=== PATIENT | female | born 1990 ===

== ENCOUNTER 2016-10-11 12:43 | Observation (INO) ==
--- NOTE | 2016-10-11 13:18 | Emergency Department Note ---
Jose Juan Mcguire Meredith, am scribing for, and in the presence of, Shaw Mahmood MD 13: 14. Ela Mcguire James D, MD, personally performed the services described in this documentation, ascribed by Etta Manzano in my presence, and it is both accurate and complete 317 . Arrival - Arrival Chief Complaint: Weakness Stated Complaint: TRANSFER [facility] ANEMIA ED Nursing Triage Note: PT TRANSFERRED FROM [facility] FOR FURTHER EVALUATION OF ANEMIA. PT WENT TO [facility] THIS AM AFTER FALLING ON TAILBONE D/T WEAKNESS. H & H FOUND TO BE 6 & 19. PT HAS WOUNDS TO BLE WITH FOUL ODOR- DEBRIDEMENT BY DR PRESCOTT. PT C/O PAIN TO TAIL BONE. Mode of Arrival: Stretcher Limitations: No Limitations Source: Patient, Old Records Reviewed, RN Notes Reviewed Time Seen by Provider: 10/11/16 13:06 - History of Present Illness HPI Narrative: Pt is a 26 y/o female transferred to the ED by EMS from [facility] for further evaluation of anemia. Her H&H was 6 and 19 at [facility]. Pt has been generally weak lately and fell on her tailbone this morning. She confirms pain to he tailbone and some lightheadedness but denies any abnormal menses, hematochezia, or melena. Pt has a history of HTN, thyroid disorder, IDDM, NIDDM, renal failure, or anemia. She attends dialysis on //Sun. Pt has ulcerations to bilateral lower extremities which have had debridement per Dr. Prescott. Onset (ago): unknown Allergies/Adverse Reactions: Allergies Allergy/AdvReac Type Severity Reaction Status Date / Time No Known Allergies Allergy Verified 10/11/16 13:01 Home Medications: Home Medications Medication Instructions Recorded Confirmed Type Lisinopril 20 mg PO DAILY 04/23/15 10/11/16 History Levothyroxine Tab [Synthroid Tab] 175 mcg PO DAILY@0700 05/29/16 10/11/16 History Nifedipine [Nifedipine ER] 90 mg PO DAILY 05/29/16 10/11/16 History Calcium (Carbonate) [Caltrate 600] 600 mg PO QID W/MEALS & HS 08/29/16 10/11/16 History Cholecalciferol (Vitamin D3) 50,000 unit PO Q28D 08/29/16 10/11/16 History [Vitamin D3] Carvedilol [Coreg] 6.25 mg PO BID W/MEALS #120 tablet 09/14/16 10/11/16 Rx Cyclobenzaprine [Flexeril] 5 mg PO TID #90 tablet 09/14/16 10/11/16 Rx Clindamycin HCl [Clindamycin Cap] 300 mg PO TID 10/11/16 10/11/16 History Hydrocodone/Acetaminophen 1 - 2 tablet PO Q4H PRN 10/11/16 10/11/16 History [Hydrocodon-Acetaminoph 7.5-325] Review of System - Review of System 12 point system: reviewed and no additional remarkable complaints except as stated - Review of System Constitutional: Present: as per HPI, weakness, other (low H & H ; lightheadedness) Musculoskeletal: Present: as per HPI, other (tailbone pain s/o fall ) Skin: Present: as per HPI, other (ulcers to bilateral lower extremities) Medical,Surgical,& Family Hx - Medical History Cardio: History of: Hypertension Endocrine: History of: Diabetes Mellitus (IDDM), Diabetes Mellitus (NIDDM), Thyroid Disorder Renal: History of: Dialysis (T,T,S), Renal Failure, Renal Problems Hematology: History of: Anemia Other: History of: MRSA, Miscellaneous Medical Problems (Right chest tessio) - Surgical History Reproductive Surgeries: Surgical HX of;: Section (times 2) - Family History Family History: Reports;: Family Diabetes (mother, father, sister), Family Heart Disease (mother, father), Family Hypertension (mother, father) Denies;: Family Anesthesia Reaction, Family Cancer, Family Psychiatric Problems, Family Stroke - Social History Smoking Status: Never smoker Frequency of Alcohol Use: None Type of Drug Use: None Exam Physical Examination: GENERAL: This is a well-nourished, well-developed female in no apparent distress. VITAL SIGNS: Temperature: 99.1, Pulse; 102, Respirations: 16, Blood pressure: 153/80, O2 Saturation: 97 HEENT: Head is normocephalic and atraumatic. Pupils are equally round and reactive to light. Extraocular movement are intact. Oropharynx is benign with moist mucous membranes. NECK: Neck is soft and supple without tenderness. There are no masses. There is no lymphadenopathy. LUNGS: Lungs are clear to auscultation bilaterally. Chest rises symmetrically. There is no chest wall tenderness. CV: Heart is regular rate and rhythm without murmurs, rubs, or gallops. ABDOMEN: Abdomen is soft, non-tender to palpation. There are no abnormal masses palpated. There is no organomegaly. Bowel sounds are present and active. SKIN: Skin is warm and dry. No rash. Pallor noted. EXTREMITIES: Patient has full range of motion without tenderness. There is no pedal edema. NEUROLOGIC: Awake, alert, and oriented x4. Cranial nerves II through XII are grossly intact. There are no motorsensory deficits. PSYCHIATRIC: Normal affect. Normal mood. Vital Signs: Vital Signs Temperature 99.1 F 10/11/16 12:43 Pulse Rate 96 H 10/11/16 15:00 Respiratory Rate 16 10/11/16 15:00 Blood Pressure 171/90 10/11/16 15:00 O2 Sat by Pulse Oximetry 96 10/11/16 15:00 Course - Consultations Consultation #1: Discussed with Dr. Johns. Patient will be admitted to his service as an outpatient for transfusion of 2 units of packed red blood cells. Initial orders written for him. Patient will be discharged home later today by him. Time: 13:34 Results - Labs CBC & BMP: 10/11/16 13:50 10/11/16 13:50 Disposition Clinical Impression: Anemia, End stage renal disease Case discussed with: patient Disposition: Still a Patient Condition: Stable
--- NOTE | 2016-10-11 13:39 | XRay Report ---
XR chest 2V Indication: Anemia, end-stage renal disease Comparison: 29 August 2016 Findings: The heart and mediastinum are stable in size and configuration. Right internal jugular catheters unchanged in position. The pulmonary vascularity is slightly increased with bilateral increased interstitial lung density. No other lung infiltrates, effusions, pneumothorax or other abnormality is demonstrated. Impression: Findings suggest mild cardiac decompensation. PROCEDURE INTERPRETED AT [facility] DEPARTMENT OF RADIOLOGY Final Report Signed by: Dr. Gume Jaime
[2016-10-11 14:01] LABS: Basophils % 0.2 % (0.0-0.8); Eosinophils # 0.3 10*3/uL (0.0-0.87); Eosinophils % 2.4 % (0.00-10.9); Immature Granulocytes % 0.5 %; Immature Granulocytes Absolute 0.07 #; Lymphocytes # 3.8 10*3/uL (1.4-4.0); Lymphocytes % 29.1 % (21.3-54.2); Mean Corpuscular HGB Conc 30.1 GM/DL (32-36); Mean Corpuscular Hemoglobin 27 PG (27-34); Mean Corpuscular Volume 89.2 FL (87-102); Mean Platelet Volume 9.6 FL (9.6-12.0); Monocytes # 1.2 10*3/uL (0.11-0.8); Monocytes % 9.6 % (1.7-12.7); Neutrophils # 7.5 10*3/uL (1.4-7.4); Neutrophils % 58.2 % (38.7-73.9); Platelet Count 575 T/CUMM (130-400); Red Blood Count 1.94 MC/CUMM (3.8-5.5); Red Cell Distribution Width 14.1 % (9.3-17.3); White Blood Count 12.9 T/CUMM (4-12)
[2016-10-11 14:03] LABS: Hematocrit 17.3 VOL% (35.7-47.0); Hemoglobin 5.2 GM/DL (12.0-16.0)
[2016-10-11 14:29] LABS: % Iron Saturation 17.5 % (18-50); Alanine Aminotransferase < 6 U/L (13-56); Albumin 1.4 G/DL (3.4-5.0); Alkaline Phosphatase 364 U/L (45-117); Aspartate Amino Transferase 12 U/L (0-37); Blood Urea Nitrogen 21 MG/DL (7-18); Calcium 7.4 MG/DL (8.5-10.1); Glucose 72 MG/DL (74-106); Iron 22 UG/DL (50-170); Iron Binding Capacity 126 UG/DL (250-450); Osmolality,Calculated 284.1 MOS/KG (273-304); Potassium 4.1 MMOL/L (3.5-5.1); Sodium 142 MMOL/L (136-145); Total Protein 6.5 G/DL (6.4-8.3)
--- NOTE | 2016-10-11 16:12 | Nephrology History & Physical ---
History of Present Illness Chief complaint: ESRD, anemia History of present illness: Ms. Finn is a 26 year old female with ESRD secondary to diabetes. She has one is on her lower extremities which have been debrided. She is being followed at the wound care center. She has some difficulty walking because of these. She fell this morning and was evaluated at the [facility]. Lab work was drawn there which showed significant anemia. She's had no melena abdominal pain or nausea. Home Medications Medication Instructions Recorded Confirmed Type Lisinopril 20 mg PO DAILY 04/23/15 10/11/16 History Levothyroxine Tab [Synthroid Tab] 175 mcg PO DAILY@0700 05/29/16 10/11/16 History Nifedipine [Nifedipine ER] 90 mg PO DAILY 05/29/16 10/11/16 History Calcium (Carbonate) [Caltrate 600] 600 mg PO QID W/MEALS & HS 08/29/16 10/11/16 History Cholecalciferol (Vitamin D3) 50,000 unit PO Q28D 08/29/16 10/11/16 History [Vitamin D3] Carvedilol [Coreg] 6.25 mg PO BID W/MEALS #120 tablet 09/14/16 10/11/16 Rx Cyclobenzaprine [Flexeril] 5 mg PO TID #90 tablet 09/14/16 10/11/16 Rx Clindamycin HCl [Clindamycin Cap] 300 mg PO TID 10/11/16 10/11/16 History Hydrocodone/Acetaminophen 1 - 2 tablet PO Q4H PRN 10/11/16 10/11/16 History [Hydrocodon-Acetaminoph 7.5-325] Allergies Allergy/AdvReac Type Severity Reaction Status Date / Time No Known Allergies Allergy Verified 10/11/16 13:01 Review of Systems Constitutional: weakness, no chills, no fever(s) Cardiovascular: no chest pain at rest, no chest pain with activity, no dyspnea Respiratory: no cough, no dyspnea, no hemoptysis Genitourinary: difficulty urinating, no dysuria, no flank pain, no hematuria Musculoskeletal: as per HPI Neurological: no confusion, no disequilibrium Hematologic/Lymphatic: as per HPI Medical,Surgical,& Family Hx - Medical History Cardio: History of: Hypertension Endocrine: History of: Diabetes Mellitus (IDDM), Diabetes Mellitus (NIDDM), Thyroid Disorder Renal: History of: Dialysis (T,T,S), Renal Failure, Renal Problems Hematology: History of: Anemia Other: History of: MRSA, Miscellaneous Medical Problems (Right chest tessio) - Surgical History Reproductive Surgeries: Surgical HX of;: Section (times 2) - Family History Family History: Reports;: Family Diabetes (mother, father, sister), Family Heart Disease (mother, father), Family Hypertension (mother, father) Denies;: Family Anesthesia Reaction, Family Cancer, Family Psychiatric Problems, Family Stroke - Social History Smoking Status: Never smoker Frequency of Alcohol Use: None Type of Drug Use: None Exam - Nephrology - Vital Signs Vital signs: Vital Signs Pulse Resp BP Pulse Ox 10/11/16 15:00 96 H 16 171/90 96 10/11/16 14:30 97 H 16 179/100 95 10/11/16 14:00 100 H 16 172/88 95 10/11/16 13:56 16 Exam: Gen.: Alert and oriented x3. ENT: Pupils equal round reactive to light. EOMs intact. Mucous membranes moist. Neck: Supple. No JVD or bruit. Cardiovascular: Regular rate and rhythm. No murmur rub or gallop Lungs: Clear Abdomen: Soft. Nontender. Positive bowel sounds. No organomegaly Extremities: Legs below the knees are dressed Results - Labs CBC & BMP: 10/11/16 13:50 10/11/16 13:50 Assessment and Plan (1) Anemia Status: Acute Assessment and plan: 26-year-old woman admitted to outpatient with: * Anemia. Hemoglobin was 6.6 one week ago. No evidence of bleeding. She will be transfused 2 units PRBC * ESRD. Dialysis tomorrow * Diabetes mellitus * Diabetic leg wounds. Followed at wound care. Current Visit: Yes (2) End stage renal disease Status: Acute Current Visit: Yes (3) Diabetes mellitus Status: Acute Current Visit: No (4) Essential hypertension Status: Acute Current Visit: No
[2016-10-11 16:32] LABS: Folate 5.2 NG/ML (5.4-24.0)
[2016-10-11] MEDS ORDERED: SODIUM CHLORIDE 0.9% 250 ML IV PRN (17:00)
[2016-10-11] MEDS ORDERED: GLUCAGON 1 MG VIAL IM PRN (17:00)
[2016-10-11] MEDS ORDERED: DEXTROSE 50% 25 GM/50 ML VIAL IV PRN (17:00)
[2016-10-11] MEDS: INSULIN LISPRO 100 UNIT/ML SUBCUT SCH ×2 (17:08→22:22)
[2016-10-12] MEDS ORDERED: ONDANSETRON 4 MG/2 ML VIAL ONE (00:51)
[2016-10-12] MEDS: ONDANSETRON 4 MG/2 ML VIAL IV PRN ×2 (00:59→15:08)
[2016-10-12] MEDS: SODIUM CHLORIDE 0.9% 1,000 ML IV SCH ×2 (06:59→16:09)
[2016-10-12] MEDS: INSULIN LISPRO 100 UNIT/ML SUBCUT SCH ×4 (08:26→21:58)
[2016-10-12] MEDS ORDERED: CYCLOBENZAPRINE 10 MG TABLET PO PRN (09:22)
[2016-10-12] MEDS ORDERED: ERGOCALCIFEROL 50,000 UNIT CAPSULE PO SCH (09:30)
[2016-10-12 09:32] LABS: Basophils # 0.1 10*3/uL (0.0-0.2); Basophils % 0.9 % (0.0-0.8); Eosinophils # 0.3 10*3/uL (0.0-0.87); Eosinophils % 3.2 % (0.00-10.9); Hemoglobin 7.7 GM/DL (12.0-16.0); Immature Granulocytes % 0.7 %; Immature Granulocytes Absolute 0.07 #; Lymphocytes # 2.2 10*3/uL (1.4-4.0); Lymphocytes % 21.7 % (21.3-54.2); Mean Corpuscular HGB Conc 32.1 GM/DL (32-36); Mean Corpuscular Hemoglobin 28 PG (27-34); Mean Corpuscular Volume 86.6 FL (87-102); Monocytes # 0.6 10*3/uL (0.11-0.8); Monocytes % 5.7 % (1.7-12.7); Neutrophils # 6.7 10*3/uL (1.4-7.4); Neutrophils % 67.8 % (38.7-73.9); Platelet Count 576 T/CUMM (130-400); Red Blood Count 2.77 MC/CUMM (3.8-5.5); Red Cell Distribution Width 14.1 % (9.3-17.3); White Blood Count 9.9 T/CUMM (4-12)
[2016-10-12] MEDS: CLINDAMYCIN 300 MG CAPSULE PO SCH ×3 (09:45→22:04)
--- NOTE | 2016-10-12 11:16 | General Surgery Consult Note ---
Assessment and Plan - Time spent with patient Time spent with patient: Less than 30 minutes (1) Open wound of both lower extremities with complication Status: Acute Assessment and plan: 26NAF w dm, htn, esrd on hd admitted by dr gwen lyles severe anemia and weakness. she has been transfused 2 units and is getting 2 more now in HD. pt has BLE open wounds that have been followed closely by dr alex. her wounds have an odor and thickened drainage w some necrotic areas. most likely will need further debridement. will discuss w dr maurice who is covering for dr alex. she will be in HD most of today so may need to be done tomorrow. will write local wound care orders for now. Current Visit: Yes (2) Eschar of lower leg Status: Acute Current Visit: No History of Present Illness Chief complaint: weakness History of present illness: 26NAF w history of DM, HTN, ESRD on HD admitted by dr gwen carter pt fell at home. pt went to [facility] p she felt weak and fell. she was found to be profoundly anemic and transferred here for further care. pt rec'd 2 units last night and is receiving 2 more units today in HD. dr alex has seen pt for BLE wounds previously. he is out and dr maurice is covering to evaluate these leg wounds. pt was initially seen and debrided by dr alex on 09/13/16 for bilateral LE eschar that had started as cellulitis. pt denies any injuries prior. she followed up in clinic and was debrided again on 10/02/16 in the surgery center. she followed up in clinic on 10/10/16 where her wounds were fairly clean. [facility] was incorrectly dressing wounds with cast padding only. new wound orders were written by his office and she was to follow up w dr beatriz houston in wound center on 10/16. upon exam, she was seen in HD wo complaints. she does have intermittent pain in her BLE. her wounds have a foul odor w several areas of necrosis. it has copious amounts of thick drainage and few areas of healthy tissue. her wbc are ok and she is afebrile Home Medications Medication Instructions Recorded Confirmed Type Lisinopril 20 mg PO DAILY 04/23/15 10/11/16 History Levothyroxine Tab [Synthroid Tab] 175 mcg PO DAILY@0700 05/29/16 10/11/16 History Nifedipine [Nifedipine ER] 90 mg PO DAILY 05/29/16 10/11/16 History Calcium (Carbonate) [Caltrate 600] 600 mg PO QID W/MEALS & HS 08/29/16 10/11/16 History Cholecalciferol (Vitamin D3) 50,000 unit PO Q28D 08/29/16 10/11/16 History [Vitamin D3] Carvedilol [Coreg] 6.25 mg PO BID W/MEALS #120 tablet 09/14/16 10/11/16 Rx Cyclobenzaprine [Flexeril] 5 mg PO TID #90 tablet 09/14/16 10/11/16 Rx Clindamycin HCl [Clindamycin Cap] 300 mg PO TID 10/11/16 10/11/16 History Hydrocodone/Acetaminophen 1 - 2 tablet PO Q4H PRN 10/11/16 10/11/16 History [Hydrocodon-Acetaminoph 7.5-325] Allergies Allergy/AdvReac Type Severity Reaction Status Date / Time No Known Allergies Allergy Verified 10/11/16 18:15 Medical,Surgical,& Family Hx - Medical History Cardio: History of: Hypertension Endocrine: History of: Diabetes Mellitus (IDDM), Diabetes Mellitus (NIDDM), Thyroid Disorder Renal: History of: Dialysis (T,T,S), Renal Failure, Renal Problems Hematology: History of: Anemia Other: History of: MRSA, Miscellaneous Medical Problems (Right chest tessio) - Surgical History Reproductive Surgeries: Surgical HX of;: Section (times 2) - Family History Family History: Reports;: Family Diabetes (mother, father, sister), Family Heart Disease (mother, father), Family Hypertension (mother, father) Denies;: Family Anesthesia Reaction, Family Cancer, Family Psychiatric Problems, Family Stroke - Social History Smoking Status: Never smoker Frequency of Alcohol Use: None Type of Drug Use: None - Constitutional Constitutional: Present: as per HPI Exam - Constitutional Vitals: Period Temp Pulse Resp BP Sys/Flores Pulse Ox Last 24 Hr 97.9 F-99.3 F 80-100 16-20 159-180/78-100 95-100 26NAF, NAD, alert and oriented seen on HD chest clear cv rrr abd soft, nt ext bilateral large wounds w copious thick drainage, and necrotic areas. good distal pulses. Results - Labs CBC & BMP: 10/12/16 08:38 10/11/16 13:50 Lab Results: I have reviewed the past 24 hour labs
--- NOTE | 2016-10-12 12:17 | Nephrology Progress Note ---
Nephrology - PN: Subj Interval history: She is seen during dialysis. Shortness of breath has improved. She was transfused last night. She will receive additional blood during dialysis today. Exam (PN)-Nephrology - Vital Signs Vital signs: Period Temp Pulse Resp BP Sys/Flores Pulse Ox Last 24 Hr 97.9 F-99.3 F 80-100 16-20 159-180/78-100 95-100 Exam: ENT: Normal Cardiovascular: Regular rate and rhythm. No murmur rub or gallop Lungs: Clear Extremities: Wrapped below the knees - Lab 10/12/16 08:38 10/11/16 13:50 Most recent lab results Calcium 7.4 MG/DL (8.5-10.1) L 10/11/16 13:50 Assessment and Plan (1) Anemia Status: Acute Assessment and plan: 26-year-old woman admitted to outpatient with: * Anemia. Improved after transfusion. She will receive 2 additional units during dialysis today * ESRD. Stable during dialysis * Diabetes mellitus * Diabetic leg wounds. Evaluated by surgery. Current Visit: Yes (2) End stage renal disease Status: Acute Current Visit: Yes (3) Diabetes mellitus Status: Acute Current Visit: No (4) Essential hypertension Status: Acute Current Visit: No
[2016-10-12] MEDS: CHLORHEXIDINE 4% SOLN 118 ML BOTTLE TOP SCH (14:48)
[2016-10-12] MEDS: SODIUM HYPOCHLORITE 0.25% IRRIG 473 ML BOTTLE TOP SCH (14:48)
[2016-10-12] MEDS: CARVEDILOL 6.25 MG TABLET PO SCH ×2 (14:49→20:33)
[2016-10-12] MEDS: LISINOPRIL 20 MG TABLET PO SCH (14:49)
[2016-10-12] MEDS: CALCIUM (CARBONATE) 600 MG TABLET PO SCH ×3 (14:52→20:33)
[2016-10-13] MEDS: CLINDAMYCIN 300 MG CAPSULE PO SCH ×2 (06:12→14:04)
[2016-10-13] MEDS ORDERED: LEVOTHYROXINE 175 MCG TABLET PO SCH (07:00)
[2016-10-13] MEDS: INSULIN LISPRO 100 UNIT/ML SUBCUT SCH ×2 (07:30→11:30)
--- NOTE | 2016-10-13 08:27 | General Surgery Progress Note ---
Assessment and Plan (1) Open wound of both lower extremities with complication Status: Acute Assessment and plan: Continue current topical wound care. Wound care consult for assistance. Dr. Tolbert will be back on Sunday if the patient is still here. Current Visit: Yes Subjective Patient reports: Present: no new complaints, afebrile Exam - Constitutional Vitals: Period Temp Pulse Resp BP Sys/Flores Pulse Ox Last 24 Hr 97.6 F-98.5 F 75-95 16-20 111-195/52-107 97-100 General appearance: normal weight, no acute distress - Head Head exam: Present: normal inspection, normocephalic - Eye Eye exam: Present: EOMI Pupils: Present: BULMARO - ENT ENT exam: Present: normal exam Mouth exam: Present: normal external inspection, normal voice - Neck Neck exam: Present: normal inspection, trachea midline - Respiratory Respiratory exam: Present: clear to auscultation bilaterally. Absent: accessory muscle use, chest wall tenderness - Cardiovascular Cardiovascular exam: Present: RRR. Absent: systolic murmur, tachycardia - GI/Abdominal GI/Abdominal exam: Present: normal bowel sounds, soft. Absent: tenderness, rebound - Extremities Exam Extremities exam: Present: other (no change bilateral lower extremity wounds. Minimal breaking up eschar. Otherwise clean with no infection or foul odor.) - Back Exam Back exam: Present: normal inspection - Neurological Exam Neurological exam: Present: alert, oriented X3 Speech: Present: normal - Skin Skin exam: Present: normal color, warm Results - Labs CBC & BMP: 10/12/16 08:38 10/11/16 13:50
[2016-10-13] MEDS: LISINOPRIL 20 MG TABLET PO SCH (10:40)
[2016-10-13] MEDS: CALCIUM (CARBONATE) 600 MG TABLET PO SCH ×2 (10:41→12:51)
[2016-10-13] MEDS: CARVEDILOL 6.25 MG TABLET PO SCH (10:41)
[2016-10-13] MEDS ORDERED: COLLAGENASE OINT 30 GM TUBE TOP SCH (11:00)
--- NOTE | 2016-10-13 11:50 | Discharge Summary ---
Hospital Course - Hospital Course Hospital Course: Ms. Finn was admitted for symptomatic anemia. She had LOUIS and weakness prior to admission. She transfused on the day of admission. She underwent dialysis with additional transfusion the following day. She was seen in consultation by Dr. Harrison for chronic lower leg wounds. Local care was recommended. No debridement was required. She is to follow-up with Dr. Liseth Arias in the wound care center next week. She is to continue her current TTS dialysis schedule in [place] Diagnosis - Discharge Diagnosis (1) Anemia Status: Chronic (2) End stage renal disease Status: Chronic (3) Diabetes mellitus Status: Chronic (4) Essential hypertension Status: Chronic Specialty Discharge - Follow Up or Referrals Follow up with: Adarsh Tolbert MD [Physician] - 10/19/16 2:45 pm Hossein Childers Jr., MD [Physician] - 10/15/16 8:00 am (This is at the [facility] here to see Dr Childers about your wounds.) Discharge Plan - Discharge Data Disposition: Disch To Home/Self Care Condition at Discharge: Stable Discharge Diet: advance to your usual diet Activity: resume usual activities as tolerated Hygiene: no restrictions Weight Bearing at Discharge: full weight bearing - Discharge Medications New Lisinopril [Prinivil] 20 mg PO DAILY tablet Calcium (Carbonate) [Caltrate 600] 600 mg PO QID W/MEALS & HS tablet Carvedilol [Coreg] 6.25 mg PO BID tablet Ergocalciferol [Drisdol] 50,000 unit PO Q30D capsule Levothyroxine Tab [Synthroid Tab] 175 mcg PO DAILY@0700 tablet NIFEdipine XL TAB [Procardia Xl] 90 mg PO DAILY tablet HYDROcodone/ACETAMIN 10-325 [[place] 10-325] 1 tablet PO Q4H PRN #30 tablet PRN Reason: Pain Moderate (4-7) Continue Lisinopril 20 mg PO DAILY Nifedipine [Nifedipine ER] 90 mg PO DAILY Levothyroxine Tab [Synthroid Tab] 175 mcg PO DAILY@0700 Cholecalciferol (Vitamin D3) [Vitamin D3] 50,000 unit PO Q28D Carvedilol [Coreg] 6.25 mg PO BID W/MEALS #120 tablet Chlorhexidine 4% Soln [Hibiclens] 1 applic TOP DAILY #1 topical solution Collagenase Oint [Santyl Oint] 1 applic TOP DAILY #1 ointment Sodium Hypochlorite 0.25% Irr [Dakins 1/2 Strength 0.25% Soln] 1 applic TOP DAILY #1 irrigation Discontinued Clindamycin HCl [Clindamycin Cap] 300 mg PO TID Cyclobenzaprine [Flexeril] 5 mg PO TID #90 tablet Hydrocodone/Acetaminophen [Hydrocodon-Acetaminoph 7.5-325] 1 - 2 tablet PO Q4H PRN PRN Reason: Pain No Action Calcium (Carbonate) [Caltrate 600] 600 mg PO QID W/MEALS & HS - Follow Up or Referral Follow Up: Adarsh Tolbert MD [Physician] - 10/19/16 2:45 pm Hossein Childers Jr., MD [Physician] - 10/15/16 8:00 am (This is at the [facility] here to see Dr Childers about your wounds.) - Forms/Instructions Exam - Constitutional Vitals: Period Temp Pulse Resp BP Sys/Flores Pulse Ox Last 24 Hr 97.6 F-98.5 F 75-95 16-20 111-195/52-107 97-100 Exam: ENT: Normal Cardiovascular: Regular rate and rhythm. No murmur rub or gallop Lungs: Clear Extremities: 1+ edema. Legs wrapped below the knee Discharge Results Procedures and tests throughout hospitalization: Pending Orders 10/12/16 08:31 Red Blood Cells Leuko Red Stat Labs on day of discharge: Labs from last 24 hours 10/12/16 10/12/16 10/12/16 20:36 19:12 18:04 POC Glucose 105 108 H 78 10/12/16 10/12/16 15:39 12:11 POC Glucose 71 L 81 DS: Provider Date of admission: 10/11/16 13:34 Primary care physician: Aura Moura MD Attending physician on admission: Anthony Johns MD Consults: 10/11/16 17:03 Consult to Physician [CONS] Routine Comment: known to you recent debridement of BLE Consulting Provider: Jimmy Harrison Person Notified: Maynor Date Notified: 10/12/16 Time Notified: 09:19 10/11/16 17:04 Consult to Pharmacy [CONS] Routine Reason for Pharmacy Consult: Adjust Meds Renal Funct 10/13/16 10:50 Consult to Wound Care - [place] [CONS] Routine Reason for Wound Care: Other Consult Comment: initial wound orders Discharging clinician: Anthony Johns MD
[2016-10-13] MEDS: CHLORHEXIDINE 4% SOLN 118 ML BOTTLE TOP SCH (12:00)
[2016-10-13] MEDS: SODIUM HYPOCHLORITE 0.25% IRRIG 473 ML BOTTLE TOP SCH (12:00)
[2016-10-14 07:16] VITALS: BP 111/66
== END 2016-10-13 15:45 | disposition home or self-care (01) ==
LOC: EDUNIT# → EDBD → N.ED 12:43 → N.EDINP 12:43 → N.5E 16:58
PROVIDERS: ADMIT Internal Medicine Nephrology; ATTEND Internal Medicine Nephrology

== ENCOUNTER 2018-10-24 19:25 | Observation (INO) ==
[2018-10-24] MEDS ORDERED: GLUCAGON 1 MG VIAL IM PRN (22:41)
[2018-10-24] MEDS ORDERED: diphenhydrAMINE CAP 25 MG CAPSULE PO PRN (22:41)
[2018-10-24] MEDS ORDERED: MORPHINE 4 MG/1 ML VIAL IV PRN (22:41)
[2018-10-24] MEDS ORDERED: NICOTINE 21 MG/24 HR PATCH TRANSDERM PRN (22:41)
[2018-10-24] MEDS ORDERED: hydrALAZINE 20 MG/1 ML VIAL IV PRN (22:41)
[2018-10-24] MEDS ORDERED: ONDANSETRON 4 MG/2 ML VIAL IV PRN (22:41)
[2018-10-24] MEDS ORDERED: ZALEPLON 5 MG CAPSULE PO PRN (22:41)
[2018-10-24] MEDS ORDERED: DEXTROSE 50% 25 GM/50 ML VIAL IV PRN (22:41)
[2018-10-24] MEDS ORDERED: TETANUS IMMUNE GLOBULIN 250 UNIT SYRINGE IM ONE (23:30)
[2018-10-24 23:36] LABS: Basophils # 0.1 10*3/uL (0.0-0.2); Basophils % 0.7 % (0.0-0.8); Eosinophils # 0.5 10*3/uL (0.0-0.87); Eosinophils % 3.9 % (0.00-10.9); Hematocrit 29.1 VOL% (35.7-47.0); Hemoglobin 9.6 GM/DL (12.0-16.0); Immature Granulocytes % 0.3 %; Immature Granulocytes Absolute 0.04 #; Lymphocytes % 24.7 % (21.3-54.2); Mean Corpuscular Hemoglobin 31 PG (27-34); Mean Platelet Volume 10.4 FL (9.6-12.0); Monocytes # 0.9 10*3/uL (0.11-0.8); Monocytes % 7.1 % (1.7-12.7); Neutrophils # 7.7 10*3/uL (1.4-7.4); Neutrophils % 63.3 % (38.7-73.9); Platelet Count 255 T/CUMM (130-400); Red Blood Count 3.13 MC/CUMM (3.8-5.5); Red Cell Distribution Width 13.8 % (9.3-17.3); White Blood Count 12.1 T/CUMM (4-12)
[2018-10-24 23:55] LABS: Albumin 3.1 G/DL (3.4-5.0); Bilirubin,Total 0.5 MG/DL (0.2-1.0); Calcium 7.7 MG/DL (8.5-10.1); Osmolality,Calculated 285.1 MOS/KG (273-304); Potassium 4.2 MMOL/L (3.5-5.1); Total Protein 7.3 G/DL (6.4-8.3)
[2018-10-25] MEDS: CARVEDILOL 12.5 MG TABLET PO SCH ×3 (00:04→21:26)
[2018-10-25] MEDS: CLINDAMYCIN INJ 600 MG in PREMIX 1 EACH IV SCH ×3 (04:50→21:25)
[2018-10-25] MEDS: ACETAMINOPHEN 325 MG TABLET PO PRN ×3 (05:28→21:25)
[2018-10-25] MEDS ORDERED: PIPERACILLIN/TAZOBACTAM 3,375 MG in SODIUM CHLORIDE 0.9% 100 ML IV SCH (08:00)
[2018-10-25] MEDS: LISINOPRIL 20 MG TABLET PO SCH (08:08)
[2018-10-25] MEDS: PANTOPRAZOLE 40 MG TABLET PO SCH (08:09)
[2018-10-25] MEDS: INSULIN REGULAR 100 UNIT/ML SUBCUT SCH ×4 (10:33→22:31)
[2018-10-25] MEDS: HEPARIN 5,000 UNIT/1 ML VIAL SUBCUT SCH ×2 (17:15→21:26)
[2018-10-25] MEDS ORDERED: INSULIN GLARGINE 100 UNIT/ML SUBCUT SCH (21:00)
[2018-10-25] MEDS: PIPERACILLIN/TAZOBACTAM 3,375 MG in SODIUM CHLORIDE 0.9% 100 ML IV SCH (22:32)
[2018-10-26] MEDS: CLINDAMYCIN INJ 600 MG in PREMIX 1 EACH IV SCH (05:30)
[2018-10-26] MEDS: HEPARIN 5,000 UNIT/1 ML VIAL SUBCUT SCH (06:02)
[2018-10-26] MEDS: INSULIN REGULAR 100 UNIT/ML SUBCUT SCH (08:05)
[2018-10-26] MEDS: PIPERACILLIN/TAZOBACTAM 3,375 MG in SODIUM CHLORIDE 0.9% 100 ML IV SCH (09:04)
[2018-10-26] MEDS: ACETAMINOPHEN 325 MG TABLET PO PRN (09:11)
[2018-10-26] MEDS: LISINOPRIL 20 MG TABLET PO SCH (09:11)
[2018-10-26] MEDS: CARVEDILOL 12.5 MG TABLET PO SCH (09:11)
[2018-10-26] MEDS: PANTOPRAZOLE 40 MG TABLET PO SCH (09:11)
[2018-10-26 09:39] VITALS: BP 135/75
== END 2018-10-26 11:28 | disposition home or self-care (01) ==
LOC: N.5E → SUATTDRO 21:23
PROVIDERS: ADMIT Internal Medicine; ATTEND Internal Medicine

== ENCOUNTER 2019-02-26 17:48 | Observation (INO) ==
[2019-02-26] MEDS ORDERED: ACETAMINOPHEN 325 MG TABLET PO PRN (21:48)
[2019-02-26] MEDS ORDERED: MORPHINE 4 MG/1 ML VIAL IV PRN (21:48)
[2019-02-26] MEDS ORDERED: ONDANSETRON 4 MG/2 ML VIAL IV PRN (21:48)
[2019-02-26 22:05] LABS: Basophils # 0.1 10*3/uL (0.0-0.2); Basophils % 0.5 % (0.0-0.8); Eosinophils # 0.4 10*3/uL (0.0-0.87); Hematocrit 23.6 VOL% (35.7-47.0); Hemoglobin 7.5 GM/DL (12.0-16.0); Immature Granulocytes % 0.9 %; Immature Granulocytes Absolute 0.08 #; Lymphocytes # 1.7 10*3/uL (1.4-4.0); Mean Corpuscular HGB Conc 31.8 GM/DL (32-36); Mean Corpuscular Volume 95.2 FL (87-102); Mean Platelet Volume 9.7 FL (9.6-12.0); Monocytes % 9.1 % (1.7-12.7); Neutrophils % 66.5 % (38.7-73.9); Platelet Count 252 T/CUMM (130-400); Red Blood Count 2.48 MC/CUMM (3.8-5.5); Red Cell Distribution Width 14.8 % (9.3-17.3); White Blood Count 9.2 T/CUMM (4-12)
[2019-02-26 22:26] LABS: Albumin 2.9 G/DL (3.4-5.0); Bilirubin,Total 0.7 MG/DL (0.2-1.0); Calcium 6.5 MG/DL (8.5-10.1); Osmolality,Calculated 288.1 MOS/KG (273-304); Total Protein 7.1 G/DL (6.4-8.3)
[2019-02-27] MEDS ORDERED: SODIUM POLYSTYRENE SULFATE 15 GM/60 ML BOTTLE PO ONE (00:01)
[2019-02-27] MEDS ORDERED: SODIUM POLYSTYRENE SULFATE 15 GM/60 ML BOTTLE ONE (00:07)
[2019-02-27 05:03] LABS: Basophils # 0.1 10*3/uL (0.0-0.2); Basophils % 0.6 % (0.0-0.8); Eosinophils # 0.5 10*3/uL (0.0-0.87); Hematocrit 22.2 VOL% (35.7-47.0); Immature Granulocytes % 0.8 %; Immature Granulocytes Absolute 0.07 #; Lymphocytes % 23.1 % (21.3-54.2); Mean Corpuscular HGB Conc 31.5 GM/DL (32-36); Mean Corpuscular Volume 95.7 FL (87-102); Monocytes % 8.8 % (1.7-12.7); Neutrophils % 60.7 % (38.7-73.9); Platelet Count 267 T/CUMM (130-400); Red Blood Count 2.32 MC/CUMM (3.8-5.5); Red Cell Distribution Width 14.6 % (9.3-17.3); White Blood Count 8.7 T/CUMM (4-12)
[2019-02-27] MEDS: CARVEDILOL 6.25 MG TABLET PO SCH ×2 (09:08→21:49)
[2019-02-27] MEDS ORDERED: SODIUM CHLORIDE 0.9% 1,000 ML IV PRN (14:33)
[2019-02-27] MEDS ORDERED: ONDANSETRON 4 MG TABLET PO PRN (15:18)
[2019-02-27] MEDS: hydrALAZINE 20 MG/1 ML VIAL IV PRN (18:46)
[2019-02-27] MEDS ORDERED: CARVEDILOL 6.25 MG TABLET PO SCH (21:00)
[2019-02-27] MEDS ORDERED: INSULIN GLARGINE 100 UNIT/ML SUBCUT SCH (21:00)
[2019-02-28] MEDS: hydrALAZINE 20 MG/1 ML VIAL IV PRN (00:26)
[2019-02-28] MEDS ORDERED: LISINOPRIL 20 MG TABLET PO SCH (09:00)
[2019-02-28] MEDS: CARVEDILOL 6.25 MG TABLET PO SCH (09:01)
[2019-02-28] MEDS ORDERED: HEPARIN 10,000 UNIT/10 ML VIAL IV SCH (11:30)
[2019-02-28 16:01] VITALS: BP 138/70
[2019-03-01] MEDS ORDERED: IRON (CARBONYL)/VIT C/B12/FA TABLET PO SCH (09:00)
== END 2019-02-28 16:20 | disposition home or self-care (01) ==
LOC: SUATTDRO 19:49 → INTOOBSV 19:49 → N.CC 19:49 → N.5E 02-27 00:39
PROVIDERS: ADMIT Internal Medicine; ATTEND Hospitalist